=== PATIENT | female | born 1935 | race Caucasian/White ===

== ENCOUNTER → 2017-07-10 | Outpatient (CLI) | payer MEDICARE, OTHER | LOC: NC 09:11 | PROVIDERS: ATTEND Internal Medicine Interventional Cardiology | DX: I48.0 Paroxysmal atrial fibrillation (principal); E78.00 Pure hypercholesterolemia, unspecified ==

== ENCOUNTER 2017-07-16 05:33 | Day surgery (SDC) | payer MEDICARE, OTHER ==
[2017-07-16] MEDS ORDERED: TROP 1%/CYCLOPEN 1%/PHENYL 2% DROPS ONE (06:09)
[2017-07-16] MEDS ORDERED: PROPARACAINE 0.5% OPHTH SOL 15 ML BTTL ONE (06:09)
[2017-07-16] MEDS: PROPARACAINE 0.5% OPHTH SOL 15 ML BTTL RIGHT_EYE ONE ×2 (09:31→09:55)
[2017-07-16] MEDS: TOBRAMYCIN SULF 0.3 % OPHT SOL 1 DROP RIGHT_EYE ONE ×2 (09:31→10:05)
[2017-07-16] MEDS ORDERED: MIDAZOLAM INJ 2 MG/2 ML VIAL ONE (09:45)
[2017-07-16] MEDS ORDERED: LIDOCAINE 1% PF 2 ML AMP INJ ONE ×2 (10:04→10:12)
[2017-07-16] MEDS ORDERED: BRIMONIDINE 0.2% OPHTH DROPS RIGHT_EYE ONE ×2 (10:05→10:25)
[2017-07-16] MEDS ORDERED: DEXAMETHASONE 0.1% OPHTH SOL 1 DROP RIGHT_EYE ONE ×2 (10:05→10:25)
[2017-07-16] MEDS ORDERED: TOBRAMYCIN SULF 0.3 % OPHT SOL 1 DROP RIGHT_EYE ONE (10:25)
[2017-07-16 12:49] VITALS: O2SAT 98
[2017-07-16 13:12] VITALS: BP 155/68; TEMP 96.2
== END 2017-07-16 11:17 | disposition home or self-care (01) ==
LOC: AMB 05:33
PROVIDERS: ATTEND Ophthalmology
DX: H25.11 Age-related nuclear cataract, right eye (principal); I10 Essential (primary) hypertension; I25.10 Atherosclerotic heart disease of native coronary artery without angina pectoris; K21.9 Gastro-esophageal reflux disease without esophagitis; Z88.6 Allergy status to analgesic agent; Z88.0 Allergy status to penicillin; Z88.1 Allergy status to other antibiotic agents; Z79.82 Long term (current) use of aspirin; Z79.899 Other long term (current) drug therapy
CPT/HCPCS: 00142; 66984; J2250

== ENCOUNTER 2017-07-30 05:22 | Day surgery (SDC) | payer MEDICARE, OTHER ==
[2017-07-30] MEDS ORDERED: TROP 1%/CYCLOPEN 1%/PHENYL 2% DROPS ONE (05:53)
[2017-07-30] MEDS ORDERED: PROPARACAINE 0.5% OPHTH SOL 15 ML BTTL ONE (05:53)
[2017-07-30] MEDS ORDERED: MIDAZOLAM INJ 2 MG/2 ML VIAL ONE (10:30)
[2017-07-30] MEDS ORDERED: PROPARACAINE 0.5% OPHTH SOL 15 ML BTTL LEFT_EYE ONE (10:35)
[2017-07-30] MEDS ORDERED: LIDOCAINE 1% PF 2 ML AMP INJ ONE ×2 (10:47→10:53)
[2017-07-30] MEDS ORDERED: DEXAMETHASONE 0.1% OPHTH SOL 1 DROP LEFT_EYE ONE ×4 (10:47→11:04)
[2017-07-30] MEDS ORDERED: BRIMONIDINE 0.2% OPHTH DROPS LEFT_EYE ONE ×4 (10:48→11:04)
[2017-07-30] MEDS ORDERED: TOBRAMYCIN SULF 0.3 % OPHT SOL 1 DROP LEFT_EYE ONE ×4 (10:48→11:04)
== END 2017-07-30 11:43 | disposition home or self-care (01) ==
LOC: AMB 05:22
PROVIDERS: ATTEND Ophthalmology
DX: H25.12 Age-related nuclear cataract, left eye (principal); I10 Essential (primary) hypertension; M06.9 Rheumatoid arthritis, unspecified; I25.10 Atherosclerotic heart disease of native coronary artery without angina pectoris; K21.9 Gastro-esophageal reflux disease without esophagitis; Z88.0 Allergy status to penicillin; Z88.8 Allergy status to other drugs, medicaments and biological substances; Z79.82 Long term (current) use of aspirin; Z79.899 Other long term (current) drug therapy
CPT/HCPCS: 00142; 66984; J2250

== ENCOUNTER 2018-02-06 17:19 | Emergency (ER) | payer OTHER, MEDICARE ==
--- NOTE | 2018-02-06 17:38 | ED.PDOC ---
History of Present Illness - General Chief Complaint: Trauma Stated Complaint: fell at home and landed on Right side Time Seen by Provider: 02/06/18 17:35 Source: patient, family Exam Limitations: no limitations - History of Present Illness Initial Comments: patient comes in for evaluation status post fall. Patient states he did not get dizzy, have chest pain, nor have shortness of breath. Patient was in the kitchen and reaching for the lower cabinets and lost her balance and fell, landing on her right side. She has some pain to her right shoulder, knee, and hip. However, she is able too move her arm and leg without difficulty and she was able to ambulate and place weight on that side. She had no loss of consciousness, no head injury, no vision change and no emesis. Occurred: just prior to arrival Severity: mild Injuries/Pain Location: upper extremity, lower extremity Reason for Fall: lost balance Loss of Consciousness: no loss of consciousness Improving Factors: nothing Worsening Factors: nothing Associated Symptoms (Fall): denies symptoms Allergies/Adverse Reactions: Allergies Antihistamines, Diphenhydramine-typ Allergy (Verified 02/06/18 17:50) Diphenhydramine [From Benadryl] Allergy (Verified 02/06/18 17:50) Ibuprofen Allergy (Verified 02/06/18 17:50) Penicillins Allergy (Verified 02/06/18 17:50) Home Medications: Ambulatory Orders Amiodarone HCl 200 mg PO DAILY 07/16/17 Aspirin [Aspirin EC Low Dose] 81 mg PO DAILY 07/16/17 Atenolol [Tenormin] 50 mg PO DAILY 07/16/17 Hydrochlorothiazide 25 mg PO DAILY 07/16/17 Multiple Minerals W/ Vitamins [En Mag Zinc +D3] 1 tab PO DAILY 07/16/17 Potassium Chloride [K-Tab] 10 meq PO BID 07/16/17 Pravastatin Sodium 40 mg PO BEDTIME 07/16/17 Ranitidine HCl 300 mg PO BEDTIME 07/16/17 Levothyroxine Sodium 50 mcg PO DAILY@0630 02/06/18 Review of Systems - Review of Systems Constitutional: States: no symptoms reported. Denies: chills, fever, weakness EENTM: States: no symptoms reported. Denies: eye pain, ear pain, nose congestion Respiratory: States: no symptoms reported. Denies: cough, short of breath, wheezing Cardiology: States: no symptoms reported. Denies: chest pain, palpitations Gastrointestinal/Abdominal: States: no symptoms reported. Denies: abdominal pain, nausea, vomiting Genitourinary: States: no symptoms reported Musculoskeletal: States: see HPI Past Medical History (General) - Patient Medical History Hx Congestive Heart Failure: No Hx Diabetes: No Hx MRSA: No Physical Exam - Physical Exam General Appearance: Alert, Frail, No apparent distress Head Injury: no evidence of injury Eye Exam: bilateral normal ENT Exam: hearing grossly normal, no evidence of ENT injury, no dental injury Cardiovascular/Respiratory: no M/R/G, normal peripheral pulses, normal breath sounds, no respiratory distress, irregularly irregular, other - no bruising no tenderness to palpation of chest wall Gastrointestinal/Abdominal: normal bowel sounds, non tender, soft Back Exam: normal inspection, no CVA tenderness, no vertebral tenderness Extremity Exam: no evidence of injury, normal range of motion, non-tender, no pedal edema Neurologic: alert, oriented x 3 - Ruben Coma Score Best Eye Response (Ruben): (4) open spontaneously Best Verbal Response (Jeannette): (5) oriented Best Motor Response (Jeannette): (6) obeys commands Ruben Total: 15 Progress - Results/Orders Results/Orders: Xray shows no fracture. Other findings known to patient from prior injuries. Departure - Departure Clinical Impression: Fall Qualifiers: Encounter type: initial encounter Qualified Code(s): W19.XXXA - Unspecified fall, initial encounter Disposition: Discharge to Home or Self Care Condition: Good Departure Forms: ED Discharge - Pt. Copy, Patient Portal Self Enrollment Instructions: DI for Trauma Referrals: CHEKO ANDERSON [Primary Care Provider] - 1-2 Weeks Home Medications: Ambulatory Orders Amiodarone HCl 200 mg PO DAILY 07/16/17 Aspirin [Aspirin EC Low Dose] 81 mg PO DAILY 07/16/17 Atenolol [Tenormin] 50 mg PO DAILY 07/16/17 Hydrochlorothiazide 25 mg PO DAILY 07/16/17 Multiple Minerals W/ Vitamins [En Mag Zinc +D3] 1 tab PO DAILY 07/16/17 Potassium Chloride [K-Tab] 10 meq PO BID 07/16/17 Pravastatin Sodium 40 mg PO BEDTIME 07/16/17 Ranitidine HCl 300 mg PO BEDTIME 07/16/17 Levothyroxine Sodium 50 mcg PO DAILY@30 02/06/18 Additional Instructions: OTC Tylenol for pain, follow up with PCP for worsening symptoms.
[2018-02-06 17:49] VITALS: TEMP 98.2
--- NOTE | 2018-02-06 18:03 | RAD ---
EXAM DESCRIPTION: Knee,Right 2 or More Views CLINICAL HISTORY: 82 years Female, fall COMPARISON: None. FINDINGS: Right knee 2 views. Tricompartmental osteoarthrosis with joint space loss and osteophyte formation, more pronounced at the medial and patellofemoral compartments. Meniscal chondrocalcinosis. No fracture or dislocation. Vascular calcifications. Soft tissues are unremarkable. IMPRESSION: No acute abnormality. Moderate tricompartment osteoarthrosis. Electronically signed by: Tonny Alicia MD 02/06/2018 6:02 PM [facility]
--- NOTE | 2018-02-06 18:04 | RAD ---
EXAM DESCRIPTION: Hip,Right 2 Views CLINICAL HISTORY: 82 years Female, fall COMPARISON: None. FINDINGS: No fracture or dislocation. Soft tissues are unremarkable. Lumbar spine degenerative changes. IMPRESSION: No acute abnormality. Electronically signed by: Tonny Alicia MD 02/06/2018 6:03 PM [facility]
--- NOTE | 2018-02-06 18:05 | RAD ---
EXAM DESCRIPTION: Shoulder,Right 2 or More Views CLINICAL HISTORY: 82 years Female, fall COMPARISON: None. FINDINGS: Right shoulder 2 views Subacromial narrowing indicating rotator cuff pathology. Moderate a chronic clavicular and glenohumeral degenerative changes. No fracture or dislocation. Soft tissues are unremarkable. IMPRESSION: No acute abnormality. No fracture. Supratentorial narrowing indicating rotator cuff pathology/tearing. Electronically signed by: Tonny Alicia MD 02/06/2018 6:03 PM [facility]
[2018-02-06 18:51] VITALS: BP 168/70; O2SAT 98
== END 2018-02-06 18:33 | disposition home or self-care (01) ==
LOC: ER 17:19
DX: M25.511 Pain in right shoulder (principal); M25.561 Pain in right knee; M25.551 Pain in right hip; W18.39XA Other fall on same level, initial encounter; Y92.000 Kitchen of unspecified non-institutional (private) residence as the place of occurrence of the external cause; Z79.82 Long term (current) use of aspirin; Z79.899 Other long term (current) drug therapy; Z88.8 Allergy status to other drugs, medicaments and biological substances; Z88.0 Allergy status to penicillin; Z88.6 Allergy status to analgesic agent

== ENCOUNTER 2018-04-03 01:21 | Observation (INO) | payer OTHER ==
--- NOTE | 2018-04-03 02:41 | RAD ---
CHEST 04/03/2018 at 0220 hours CLINICAL HISTORY: Chest pain, hypertension. COMPARISON: None. TECHNIQUE: [AP] Chest. FINDINGS: Cardiac size is borderline enlarged. There is moderate aortic atherosclerosis. Mild pulmonary vascular congestion. Scattered bilateral lower lobe atelectasis. No pleural fluid. No pneumothorax. There is mild to moderate lower thoracic spondylosis. Generalized decreased bone density. Unremarkable soft tissues. Right upper quadrant cholecystectomy clips are seen. IMPRESSION: 1. Borderline cardiomegaly with mild vascular congestion. Mild scattered atelectasis. Electronically signed by: Kindra Mercedes DO 04/03/2018 2:39 AM [facility] [[email or web address]]
[2018-04-03] MEDS ORDERED: POTASSIUM CHLORIDE ELIXIR 20 MEQ/15 ML UD PO ONE (03:02)
[2018-04-03] MEDS ORDERED: SODIUM CHLORIDE 0.9% 1000ML 1,000 ML IVS ONE (03:02)
[2018-04-03] MEDS ORDERED: ACETYLCYSTEIN 20 % 6,000 MG/30 ML VIAL PO ONE (03:04)
[2018-04-03] MEDS ORDERED: ASPIRIN TABLET 325 MG TAB PO ONE (03:19)
[2018-04-03] MEDS ORDERED: CYCLOBENZAPRINE HCL 5 MG TAB PO ONE (03:19)
[2018-04-03] MEDS ORDERED: ENOXAPARIN SODIUM 60 MG/0.6 ML SYG SUBCU ONE (03:21)
--- NOTE | 2018-04-03 03:24 | ED.PDOC ---
History of Present Illness - General Source: patient Exam Limitations: no limitations - History of Present Illness Initial Comments: the patient is an 82-year-old female presenting to emergency room secondary to 2-3 minutes of severe left parasternal chest pain just prior to arrival. The patient was lying down flat in her bed when it hit her. She was unable to take a deep breath for a couple of minutes. No vomiting. She did become diaphoretic. She does not recall this happening to her before. She has had a history of arrhythmia in the past. She is mildly bradycardic here. She is not hypoxic. She denies any history of any pulmonary emboli. No leg pain or swelling. No fever. The patient does have a vertebral compression fracture that has been limiting her mobility lately. It is also been increasing her abdominal and back pain in general. She is not currently having any pain. Severity: severe Improving Factors: nothing Worsening Factors: nothing Associated Symptoms: chest pain, diaphoresis, shortness of breath <Tariq Gavin L - Last Filed: 04/03/18 03:29> <Lavon Danielle - Last Filed: 04/03/18 10:28> - General Chief Complaint: Cardiovascular Problem Stated Complaint: chest discomfort Time Seen by Provider: 04/03/18 01:58 - History of Present Illness Allergies/Adverse Reactions: Allergies Antihistamines, Diphenhydramine-typ Allergy (Verified 02/06/18 17:50) Diphenhydramine [From Benadryl] Allergy (Verified 02/06/18 17:50) Ibuprofen Allergy (Verified 02/06/18 17:50) Penicillins Allergy (Verified 02/06/18 17:50) Home Medications: Ambulatory Orders Amiodarone HCl 200 mg PO DAILY 07/16/17 Aspirin [Aspirin EC Low Dose] 81 mg PO DAILY 07/16/17 Atenolol [Tenormin] 50 mg PO DAILY 07/16/17 Hydrochlorothiazide 25 mg PO DAILY 07/16/17 Multiple Minerals W/ Vitamins [En Mag Zinc +D3] 1 tab PO DAILY 07/16/17 Potassium Chloride [K-Tab] 10 meq PO BID 07/16/17 Pravastatin Sodium 40 mg PO BEDTIME 07/16/17 Ranitidine HCl 300 mg PO BEDTIME 07/16/17 Levothyroxine Sodium 50 mcg PO DAILY@0630 02/06/18 Review of Systems - Review of Systems Constitutional: States: malaise EENTM: States: no symptoms reported Respiratory: States: short of breath - during the event only Cardiology: States: chest pain Gastrointestinal/Abdominal: States: no symptoms reported Genitourinary: States: no symptoms reported Musculoskeletal: States: back pain - chronic with recent compression fracture as well Skin: States: no symptoms reported Neurological: States: no symptoms reported Endocrine: States: no symptoms reported All other Systems: No Change from Baseline <Tariq Gavin - Last Filed: 04/03/18 03:29> Past Medical History (General) - Patient Medical History Hx Seizures: No Hx Stroke: No Hx Asthma: No Hx of COPD: No Hx Cardiac Disorders: Yes Hx Congestive Heart Failure: No Hx Pacemaker: No Hx Hypertension: Yes Hx Thyroid Disease: Yes Hx Diabetes: No Hx Gastroesophageal Reflux: Yes Hx Cancer: No Hx MRSA: No Surgical History: Hysterectomy, other - Vaccination History Hx Tetanus, Diphtheria Vaccination: No Hx Influenza Vaccination: Yes - Social History Hx Alcohol Use: No Hx Substance Use: No Hx Depression: No <Tariq Gavin - Last Filed: 04/03/18 03:29> Family Medical History - Family History Mother Family History: Unknown Living Status: Hx Family Cancer: Yes <Tariq Gavin - Last Filed: 04/03/18 03:29> Physical Exam - Physical Exam General Appearance: Alert, Frail Eye Exam: bilateral normal Ears, Nose, Throat: hearing grossly normal, normal ENT inspection, normal pharynx Neck: supple, normal inspection Respiratory: lungs clear, normal breath sounds, no respiratory distress, no accessory muscle use Cardiovascular/Chest: normal peripheral pulses, regular rate, rhythm - mild bradycardia, no edema, other - the patient does have some mild pectoralis tenderness to palpation medially on the left Peripheral Pulses: radial,right: 2+, radial,left: 2+, dorsalis pedis,right: 2+, dorsalis pedis,left: 2+ Gastrointestinal/Abdominal: normal bowel sounds, non tender, soft Rectal Exam: deferred Back Exam: CVA tenderness (R), CVA tenderness (L) - related to compression fracture, vertebral tenderness Extremity: non-tender, normal inspection, no pedal edema, normal capillary refill Neurologic: geophysical support specialist II-XII nml as tested, alert, normal mood/affect, oriented x 3 Skin Exam: normal color Comments: Vital Signs - 24 hr 04/03/18 04/03/18 04/03/18 01:28 01:48 02:23 Temperature 96.9 F L 96.9 F L Pulse Rate [ 54 L 54 L 52 L left] Respiratory 20 18 Rate Blood Pressure 194/63 142/59 [left] O2 Sat by Pulse 100 96 Oximetry <Tariq Gavin - Last Filed: 04/03/18 03:29> Progress - Progress Progress: 04/03/18 03:25 the patient's an 82-year-old female presenting to the emergency room after several minutes of severe left parasternal chest pain. Muscle spasm is highly likely given the low potassium and mild dehydration. She is receiving oral potassium and IV fluids. We will plan on rechecking a potassium level at her next blood draw. Initial set of cardiac enzymes is reassuring however it was drawn less than an hour after the event. A recheck will be drawn around 7 AM along with a BUN and creatinine to see if the patient will have corrected with rehydration and off for a CT angiogram of the chest. The patient did have an elevated d-dimer and transient shortness of breath along with recent decrease in mobilization due to her compression fracture. If the next set of cardiac enzymes is negative the patient will be admitted observation for the full rule out and CT angiogram once her renal function is adequate. She has been given a dose of aspirin and Lovenox. She is also been given a small dose of Flexeril secondary to her back discomfort. She is currently chest pain-free. Blood pressure is improving. Follow for now. - Results/Orders Results/Orders: chest x-ray shows borderline cardiomegaly and mild pulmonary vascularization. EKG shows sinus bradycardia at a rate of 52 bpm. Normal QT interval. Normal axis. Normal R-wave progression. The patient does have a Q-wave in lead 3. No definitive ST segment or T-wave changes pathognomic for ischemia at this time. <Tariq Gavin - Last Filed: 04/03/18 03:29> - Progress Progress: 04/03/18 10:23 Discuss test results with patient and recommended hospital obs for her chest pains symptoms to rule out AK and agreed with plan. <Lavon Danielle - Last Filed: 04/03/18 10:28> Departure <Tariq Gavin L - Last Filed: 04/03/18 03:29> - Departure Time of Disposition: 10:27 <Lavon Danielle - Last Filed: 04/03/18 10:28> - Departure Clinical Impression: History of atrial fibrillation Chest pain Qualifiers: Chest pain type: unspecified Qualified Code(s): R07.9 - Chest pain, unspecified Disposition: Admit Patient Condition: Fair Departure Forms: Patient Portal Self Enrollment Referrals: CHEKO ANDERSON [Primary Care Provider] - 1-2 Weeks Home Medications: Ambulatory Orders Amiodarone HCl 200 mg PO DAILY 07/16/17 Aspirin [Aspirin EC Low Dose] 81 mg PO DAILY 07/16/17 Atenolol [Tenormin] 50 mg PO DAILY 07/16/17 Hydrochlorothiazide 25 mg PO DAILY 07/16/17 Multiple Minerals W/ Vitamins [En Mag Zinc +D3] 1 tab PO DAILY 07/16/17 Potassium Chloride [K-Tab] 10 meq PO BID 07/16/17 Pravastatin Sodium 40 mg PO BEDTIME 07/16/17 Ranitidine HCl 300 mg PO BEDTIME 07/16/17 Levothyroxine Sodium 50 mcg PO DAILY@0630 02/06/18 Decision To Admit - Decistion To Admit Decision to Admit Reason: Admit from ER Decision to Admit Date: 04/03/18 - D/W Sade Rebollar -ANP/Hospitalist for admit Decision to Admit Time: 10:26 <Lavon Danielle - Last Filed: 04/03/18 10:28>
--- NOTE | 2018-04-03 09:13 | CT ---
EXAM DESCRIPTION: CTA Chest: Computed Tomography. CLINICAL HISTORY: abrupt chest pain with elevated d-dimer COMPARISON: Chest x-ray on the same visit. TECHNIQUE: Spiral-axial scans at 2.5 x 2.5 mm intervals through the pulmonary arteries and chest after bolus infusion of IV contrast. Lung algorithm 1.25 x 2.5-mm axial reconstructions. Coronal and sagittal 2.0 Mm reconstructions. 10.0 mm PE oblique 3-D reformatted images. No adverse reactions. Total Exam DLP: 504.06 mGy-cm. This exam was performed according to our departmental CT dose-optimization program which includes automated exposure control, adjustment of the mA and/or kV according to patient size and/or use of iterative reconstruction technique; to reduce radiation dose to as low as reasonably achievable (ALARA). FINDINGS: Heart and great vessels: The pulmonary arterial system is well demonstrated by contrast material from the main pulmonary artery to the bilateral proximal subsegmental pulmonary artery branches with no filling defects seen. The peripheral subsegmental pulmonary artery branches are bilaterally symmetric in caliber. Atherosclerotic calcifications in the proximal brachiocephalic vessels aortic arch and descending thoracic aorta. No aneurysm. Atherosclerotic calcifications in the coronary arteries. Lungs and airways. Scarring in the medial base of the right upper lobe, the base of the right middle lobe, bilateral bases, and inferior lingula. No abnormal nodules or masses. No focal infiltrates. Pleura and spaces: Thickening of the pleura on the posterior left hemidiaphragm. Bilateral focal pleural thickening and bibasilar pleural thickening. No effusion or pneumothorax. Mediastinum and hay: No enlarged lymph nodes or soft tissue masses. Chest wall, soft tissues and base of neck: Small thyroid gland. Calcifications in the bilateral breasts. No enlarged axillary lymph nodes. Upper abdomen: No free air or free fluid. Surgical clips in the gallbladder fossa. Aortic and arterial vascular calcifications. Osseous structures: Thoracic spondylosis. More severe at the lower levels anterior right more than left. Arthrosis right glenohumeral joint. No blastic or lytic lesions. IMPRESSION: CTA chest showing no evidence of acute or significant chronic pulmonary embolus. Senescent findings and the bilateral lungs. No abnormal nodules masses or focal infiltrates. No pleural effusion or pneumothorax. Nonspecific pleural thickening bilaterally. No soft tissue masses or enlarged lymph nodes. Electronically signed by: Cricket Franco MD 04/03/2018 9:12 AM [employer]
--- NOTE | 2018-04-03 11:22 | HP ---
SUPERVISING PHYSICIAN: Bryan Vegas M.D. CHIEF COMPLAINT: Stabbing epigastric pain. HISTORY OF PRESENT ILLNESS: This is an 82 year-old female patient who presented to the Emergency Room after she had 2 to 3 minutes of stabbing substernal chest pain which started just prior to her arrival. She actually was about to sit down and eat some dessert that her granddaughter made and she had this stabbing pain that lasted for 2 to 3 minutes. She has never experienced that kind of pain before. It was not related to exertion. She had some mild shortness of breath but there was no diaphoresis, nausea or vomiting. She was reclining in her chair when it happened. At the insistence of her granddaughter she came to the Emergency Room. In the E. R., she was given some aspirin as well as a small amount of fluids. Lab was done and her sodium was 133, potassium 3, chloride 95, carbon dioxide 31, BUN 20, creatinine 1.26, glucose 113, serum osmolality 269.8. Her initial cardiac enzymes were negative. BNP was 651 with serum total protein of 6.3, albumin 3.1. Subsequent cardiac enzymes approximately 4 hours later were negative. A chest x-ray was also performed and showed borderline cardiomegaly with mild vascular congestion and mild scattered atelectasis. D- dimer was also slightly elevated at 1.11. PT and PTT were within normal limits. Subsequently a chest CTA was done and showed no evidence of acute or significant chronic pulmonary embolus. I was called to place the patient in observation to continue a chest pain workup. PAST MEDICAL HISTORY: 1. Atrial fibrillation many years ago which required cardioversion. She is presently on Amiodarone and Metoprolol. 2. Hypertension. 3. Hypothyroidism. 4. Gastroesophageal reflux disease. PAST SURGICAL HISTORY: 1. Hysterectomy. 2. Left hip replacement. OUTPATIENT MEDICATIONS: 1. Acetaminophen. 2. Amiodarone. 3. Aspirin. 4. Atenolol. 5. Hydrochlorothiazide. 6. Levothyroxine. 7. Potassium chloride. 8. Pravastatin. 9. Ranitidine. ALLERGIES: BENADRYL, IBUPROFEN, PENICILLIN. FAMILY HISTORY: Positive for cancer. SOCIAL HISTORY: She lives in [place]. Has recently moved from [place]. She denies any tobacco, ETOH or illicit drug use. She sees Dr. Kam Pizarro in [place] as her primary care physician and Dr. Hair is her chief radiologic technologist in [place]. REVIEW OF SYSTEMS: GENERAL: Positive for malaise, negative for fever or weight changes. HEENT: Negative for sinus symptoms, ear pain, vision changes or sore throat. RESPIRATORY: Positive for shortness of breath during her chest pain, otherwise negative for coughing or wheezing. CARDIAC: Positive for chest pain. Negative for palpitations or tachycardia. GASTROINTESTINAL: Negative for abdominal pain, nausea, vomiting or diarrhea. GENITOURINARY: Negative for hematuria, dysuria or polyuria. MUSCULOSKELETAL: Positive for chronic back pain. She recently was diagnosed with a compression fracture. SKIN: Negative for lesions or rashes. NEUROLOGIC: Negative for headaches, dizziness or seizures. PHYSICAL EXAMINATION: VITAL SIGNS: She is afebrile with temperature 97.5, heart rate 50, blood pressure 144/72, respiratory rate 20, O2 sat is 95% on room air. GENERAL: This is a thin 82 year-old female patient lying in her hospital bed. She is in no acute distress. HEENT: Normocephalic and atraumatic. Pupils are equal and reactive. Oropharynx is clear. NECK: Supple without mass. RESPIRATORY: Essentially clear to auscultation bilaterally. CHEST: There is equal rise and fall of the chest with inspiration and expiration. CARDIOVASCULAR: Bradycardic rate, regular rhythm. GASTROINTESTINAL: Abdomen is soft, nondistended, non-tender. Bowel sounds are positive. EXTREMITIES: No clubbing, cyanosis or edema. NEUROLOGIC: She is awake and alert and oriented times three. Cranial nerves II-XII are grossly intact. LABORATORY: Labs and films are as per the History of Present Illness. ASSESSMENT: 1. Chest pain, rule out myocardial infarction. 2. Elevated BNP without any formal diagnosis of congestive heart failure and no current echocardiogram to review. Her BNP was 651. 3. History of atrial fibrillation presently on Amiodarone and Metoprolol. 4. History of recent compression fracture of the C-spine several weeks ago. 5. Hypothyroidism. 6. Hypertension. 7. Gastroesophageal reflux disease. PLAN: We will place the patient in observation. We will continue the chest pain guidelines and continue with serial cardiac enzymes. She is already on an aspirin and we will continue that as well as her routine medications. She will have a PPI for ulcer prophylaxis as well as Lovenox for DVT prophylaxis. She will need close followup with Dr. Kam Pizarro in [place] after discharge so she can see her chief radiologic technologist for a complete workup. If she does not have a CHF diagnosis, it is recommended that she do an echocardiogram and consider an Jesus inhibitor after completion of her cardiac exam. I have also done routine lab in the morning, including a lipid panel and a TSH. Will continue to monitor closely and follow as needed. #[id number] MTDD
[2018-04-03] MEDS ORDERED: SODIUM CHLORIDE 0.9% (FLUSH) 10 ML SYG IV PRN (12:23)
[2018-04-03] MEDS ORDERED: MORPHINE SULFATE INJ 10 MG/ML VIAL IV PRN (12:23)
[2018-04-03] MEDS ORDERED: NITROGLYCERIN 0.4 MG 25 EA TAB SL PRN (12:23)
[2018-04-03] MEDS ORDERED: ACETAMINOPHEN 325 MG TAB PO PRN (12:23)
[2018-04-03] MEDS ORDERED: ATENOLOL 25 MG TAB PO SCH (12:30)
[2018-04-03] MEDS ORDERED: IV SET AND CAP CHANGE INJ INJ SCH (12:30)
[2018-04-03] MEDS ORDERED: ATENOLOL 25 MG TAB ONE (12:36)
[2018-04-03] MEDS: NYSTATIN POWDER 15GM BTTL TOP SCH ×3 (12:52→20:19)
[2018-04-03] MEDS: ATENOLOL 25 MG TAB PO SCH (14:16)
[2018-04-03] MEDS: AMIODARONE HCL 200 MG TAB PO SCH (14:16)
[2018-04-03] MEDS ORDERED: PANTOPRAZOLE SODIUM TAB 40 MG PO ONE (19:30)
[2018-04-03] MEDS ORDERED: LEVOTHYROXINE SODIUM 0.025 MG TAB ONE (19:30)
[2018-04-03] MEDS: SODIUM CHLORIDE 0.9% (FLUSH) 10 ML SYG IV SCH (20:19)
[2018-04-03] MEDS: POTASSIUM CHLORIDE 10 MEQ TAB PO SCH (20:19)
[2018-04-03] MEDS ORDERED: ENOXAPARIN SODIUM 30 MG/0.3 ML SYG SUBCU SCH (21:00)
[2018-04-03] MEDS ORDERED: PRAVASTATIN SODIUM 20 MG TAB PO SCH (21:00)
[2018-04-04] MEDS ORDERED: LEVOTHYROXINE SODIUM 0.025 MG TAB PO SCH (06:30)
[2018-04-04] MEDS ORDERED: PANTOPRAZOLE SODIUM TAB 40 MG PO SCH (06:30)
[2018-04-04] MEDS: POTASSIUM CHLORIDE 10 MEQ TAB PO SCH (08:50)
[2018-04-04] MEDS ORDERED: ASPIRIN TABLET 325 MG TAB PO SCH (09:00)
[2018-04-04] MEDS ORDERED: ASPIRIN (ENTERIC COATED) 81 MG TAB PO SCH (09:00)
[2018-04-04] MEDS ORDERED: hydroCHLOROthiazide 25 MG TAB PO SCH (09:00)
[2018-04-04] MEDS ORDERED: traMADol HCL 50 MG TAB PO PRN (09:01)
[2018-04-04 09:53] VITALS: O2SAT 98
[2018-04-04] MEDS: ATENOLOL 25 MG TAB PO SCH (09:54)
[2018-04-04] MEDS: AMIODARONE HCL 200 MG TAB PO SCH (09:54)
[2018-04-04] MEDS: SODIUM CHLORIDE 0.9% (FLUSH) 10 ML SYG IV SCH (10:24)
[2018-04-04] MEDS: NYSTATIN POWDER 15GM BTTL TOP SCH (10:24)
[2018-04-04 14:01] VITALS: BP 133/71; TEMP 98.1
--- NOTE | 2018-04-04 14:03 | DS ---
SUPERVISING PHYSICIAN: Lisandro Vegas MD DISCHARGE DIAGNOSIS: 1. Chest pain, rule out myocardial infarction. Her serial cardiac enzymes have all been negative. 2. Elevated BNP without any formal diagnosis of congestive heart failure and no current echocardiogram to review. Her BNP was 651. 3. History of atrial fibrillation presently on amiodarone and metoprolol. 4. History of recent compression fracture of the cervical spine several weeks ago. 5. Hypothyroidism. 6. Hypertension. 7. Gastroesophageal reflux disease. HISTORY OF PRESENT ILLNESS: This is an 82-year-old female patient who presented to the Emergency Room after she had 2 to 3 minutes of stabbing substernal chest pain which started just prior to her arrival. She actually was about to sit down and eat some dessert that her granddaughter made and she had this stabbing pain that lasted for 2 to 3 minutes. She has never experienced that kind of pain before. It was not related to exertion. She had some mild shortness of breath but there was no diaphoresis, nausea or vomiting. She was reclining in her chair when it happened. At the insistence of her granddaughter she came to the Emergency Room. In the ER, she was given some aspirin as well as a small amount of fluids. Lab was done and her sodium was 133, potassium 3, chloride 95, carbon dioxide 31, BUN 20, creatinine 1.26, glucose 113, serum osmolality 269.8. Her initial cardiac enzymes were negative. BNP was 651 with serum total protein of 6.3, albumin 3.1. Subsequent cardiac enzymes approximately 4 hours later were negative. A chest x-ray was also performed and showed borderline cardiomegaly with mild vascular congestion and mild scattered atelectasis. D- dimer was also slightly elevated at 1.11. PT and PTT were within normal limits. Subsequently a chest CTA was done and showed no evidence of acute or significant chronic pulmonary embolus. I was called to place the patient in observation to continue a chest pain workup. HOSPITAL COURSE: The patient's remaining two sets of cardiac enzymes were negative. She did complain of some pain, especially in her back and I started her on some tramadol. She is quite afraid of narcotic pain medications and we tried that. She did not feel over-drugged or sleepy with it and tolerated her physical therapy without problems. Her followup lab this morning showed CBC basically within normal limits. Her electrolytes were within normal limits with the exception of her chloride slightly low at 100. Her thyroid was within normal limits at 0.81. Triglycerides were 78, LDL 68.3, HDL 43. Her vital signs had been stable with temperature 97.9, heart rate 54, blood pressure 125/65, respiratory rate 16, O2 saturation 93% on room air. She will be discharged home in stable condition. DISCHARGE PLAN: The patient will be discharged home in stable condition. She is to resume her diabetic diet at home. She is to increase her activity as tolerated. She will have [facility] with Pysical Therapy. She is to have a followup appointment with her family physician, Dr. Kam Pizarro in [place] within the next one to two weeks. It is recommended at this time that she have a followup with her welcome desk agent and although we do not have any formal diagnosis of congestive heart failure, it may be recommended that she have an echocardiogram as her BNP was elevated at 651, although she did not show any signs of a congestive heart failure exacerbatioln. I have given her one tramadol here in the hospital and it seemed to relieve her back pain. She will also need to seek followup for the compression fracture in her upper back. I will give her #20 tramadol as a prescription for her pain. She is to return to the hospital or followup with Dr. Pizarro for any problems or complications. DISCHARGE MEDICATIONS: 1. Ranitidine. 2. Pravastatin. 3. Potassium chloride. 4. Multivitamin. 5. Hydrochlorothiazide. 6. Tenormin. 7. Aspirin. 8. Amiodarone. 9. Levothyroxine. 10. Nystatin. 11. Tramadol. #[id number] [facility]
== END 2018-04-04 14:40 | disposition home or self-care (01) ==
LOC: ER 01:21 → MS 11:21
PROVIDERS: ADMIT Nurse Practitioner Acute Care; ATTEND Nurse Practitioner Acute Care
DX: R07.2 Precordial pain (principal); R79.89 Other specified abnormal findings of blood chemistry; R00.1 Bradycardia, unspecified; E87.6 Hypokalemia; E86.0 Dehydration; I48.91 Unspecified atrial fibrillation; I10 Essential (primary) hypertension; E03.9 Hypothyroidism, unspecified; M48.52XD Collapsed vertebra, not elsewhere classified, cervical region, subsequent encounter for fracture with routine healing; K21.9 Gastro-esophageal reflux disease without esophagitis; Z79.82 Long term (current) use of aspirin; Z79.899 Other long term (current) drug therapy; Z88.0 Allergy status to penicillin; Z88.6 Allergy status to analgesic agent; Z88.8 Allergy status to other drugs, medicaments and biological substances
CPT/HCPCS: 96372; J1650 ×2; J7030; 85379; 80048; 82553 ×4; 80053 ×2; 80061; 36415 ×3; 85025 ×2; 82550 ×4; 83735; 85730; 85610; 84443; 84484 ×4; 83880; 71045; 71275; 94760 ×3; 97530; G8978; G8979; 97162; 99285; 93005 ×3; G0378